=== PATIENT | female | born 1960 | race Caucasian/White ===

== ENCOUNTER 2017-07-15 02:44 | Observation (INO) | payer BC ==
--- NOTE | 2017-07-15 03:08 | ED PDOC ---
Arrival/HPI - General Chief Complaint: Chest Pain Time Seen by Provider: 07/15/17 02:44 Historian: Patient - History of Present Illness Narrative History of Present Illness (Text): 07/15/17 03:05 Rakel Schwartz is a 56 year old female, whose past medical history includes diabetes, hypertension, and aortic stenosis, who presents to the Emergency department complaining of chest pain. Patient states she has experiencing intermittent right-sided chest pressure for the past 2 hours but notes it has improved since arriving to the emergency room. Patient denies any fever, chills , shortness of breath, nausea, vomiting, diarrhea, urinary symptoms, back pain, neck pain, headache, dizziness, or any other complaints. PMD: Dr. Garcia Time/Duration: Other (couple of hours) Symptom Onset: Gradual Symptom Course: Unchanged Quality: Pressure Activities at Onset: Light Context: Home Past Medical History - Provider Review Nursing Documentation Reviewed: Yes - Infectious Disease Hx of Infectious Diseases: None - Reproductive Menopause: Yes - Cardiac Hx Cardiac Arrhythmia: Yes - Pulmonary Hx Respiratory Disorders: No - Neurological Hx Neurological Disorder: No - HEENT Hx HEENT Disorder: No - Renal Hx Renal Disorder: No - Endocrine/Metabolic Hx Endocrine Disorders: No - Hematological/Oncological Hx Blood Disorders: No - Integumentary Hx Dermatological Disorder: No - Musculoskeletal/Rheumatological Hx Musculoskeletal Disorders: No - Gastrointestinal Hx Gastrointestinal Disorders: No - Genitourinary/Gynecological Hx Genitourinary Disorders: No - Psychiatric Hx Psychophysiologic Disorder: No Hx Substance Use: No - Surgical History Hx Appendectomy: Yes - Anesthesia Hx Anesthesia: No Family/Social History - Physician Review Nursing Documentation Reviewed: Yes Family/Social History: Diabetes Smoking Status: Never Smoked Hx Alcohol Use: No Hx Substance Use: No Allergies/Home Meds Allergies/Adverse Reactions: Allergies No Known Allergies Allergy (Verified 07/15/17 02:49) Home Medications: Home Meds Medication Instructions Recorded Confirmed No Known Home Med 07/15/17 07/15/17 Review of Systems - Physician Review All systems were reviewed & negative as marked: Yes - Review of Systems Constitutional: Normal. absent: Fevers Eyes: Normal ENT: Normal Respiratory: Normal. absent: SOB, Cough Cardiovascular: Chest Pain Gastrointestinal: Normal. absent: Abdominal Pain, Diarrhea, Nausea, Vomiting Genitourinary Female: Normal. absent: Dysuria, Frequency, Hematuria, Urine Output Changes Musculoskeletal: Normal. absent: Back Pain, Neck Pain Skin: Normal. absent: Rash Neurological: Normal. absent: Headache, Dizziness Endocrine: Normal Hemo/Lymphatic: Normal Psychiatric: Normal Physical Exam Vital Signs Reviewed: Yes Vital Signs Temp Pulse Resp BP Pulse Ox 07/15/17 04:51 63 17 165/94 H 97 07/15/17 02:50 98.3 F 07/15/17 02:44 70 20 165/83 H 97 Temperature: Afebrile Blood Pressure: Hypertensive Pulse: Regular Respiratory Rate: Normal Appearance: Positive for: Well-Appearing, Non-Toxic, Comfortable Pain Distress: None Mental Status: Positive for: Alert and Oriented X 3 - Systems Exam Head: Present: Atraumatic, Normocephalic Pupils: Present: PERRL Extroacular Muscles: Present: EOMI Conjunctiva: Present: Normal Mouth: Present: Moist Mucous Membranes Neck: Present: Normal Range of Motion Respiratory/Chest: Present: Clear to Auscultation, Good Air Exchange. No: Respiratory Distress, Accessory Muscle Use Cardiovascular: Present: Regular Rate and Rhythm, Normal S1, S2. No: Murmurs Abdomen: Present: Normal Bowel Sounds. No: Tenderness, Distention, Peritoneal Signs Back: Present: Normal Inspection Upper Extremity: Present: Normal Inspection. No: Cyanosis, Edema Lower Extremity: Present: Normal Inspection. No: Edema Neurological: Present: GCS=15, CN II-XII Intact, Speech Normal Skin: Present: Warm, Dry, Normal Color. No: Rashes Psychiatric: Present: Alert, Oriented x 3, Normal Insight, Normal Concentration Medical Decision Making ED Course and Treatment: 07/15/17 03:05 Impression: 56 year old female complaining of intermittent right-sided chest pressure tonight. Plan: -- EKG -- Chest X-ray -- Labs, cardiac enzymes -- Aspirin -- Reassess and disposition Prior Visits: Notes and results from previous visits were reviewed. On 12/22/2015, pt was seen in the Emergency department for chest pain and anxiety. Pt was d/c home. Progress Notes: Reviewed EKG, NSR at [address]-segment elevations or depressions, no T-wave inversions, normal intervals. 07/15/17 03:30 Reviewed radiology, Chest X-ray shows no acute processes. 07/15/17 04:[address] Garcia, who is aware and agrees with plan. Accepts pt in to his service. Pt will go to Telemetry observation for chest pain. Requests Dr. Adkins on consult. - Lab Interpretations Lab Results: 07/15/17 03:00 07/15/17 03:00 Lab Results 07/15/17 03:00: WBC 6.8 D, RBC 4.95, Hgb 13.8, Hct 40.1, MCV 81.0, MCH 27.9, MCHC 34.4, RDW 13.6, Plt Count 268, MPV 12.1 H 07/15/17 03:00: Sodium 142, Potassium 4.0, Chloride 104, Carbon Dioxide 27, Anion Gap 15, BUN 16, Creatinine 0.8, Est GFR ( Amer) > 60, Est GFR (Non- Af Amer) > 60, Random Glucose 134 H, Calcium 9.0, Total Bilirubin 0.6, AST 31, ALT 41, Alkaline Phosphatase 96, Lactate Dehydrogenase 554, Total Creatine Kinase 94, Troponin I < 0.01, Total Protein 8.3, Albumin 4.5, Globulin 3.9, Albumin/Globulin Ratio 1.2 07/15/17 03:00: PT 12.0, INR 1.10 H, APTT 30.6 I have reviewed the lab results: Yes - RAD Interpretation Radiology Orders: 07/15/17 02:59 CHEST PORTABLE [RAD] Stat Chief Embalmer: ED Physician - EKG Interpretation Interpreted by ED Physician: Yes Type: 12 lead EKG - Medication Orders Current Medication Orders: Discontinued Medications Aspirin (Aspirin) 325 mg PO ONCE STA Stop: 07/15/17 03:01 Last Admin: 07/15/17 03:24 Dose: 325 mg - Scribe Statement The provider has reviewed the documentation as recorded by the Candace Weinberg Provider Scribe Attestation: All medical record entries made by the Candace were at my direction and personally dictated by me. I have reviewed the chart and agree that the record accurately reflects my personal performance of the history, physical exam, medical decision making, and the department course for this patient. I have also personally directed, reviewed, and agree with the discharge instructions and disposition. Disposition/Present on Arrival - Present on Arrival Any Indicators Present on Arrival: No History of DVT/PE: No History of Uncontrolled Diabetes: No Urinary Catheter: No History of Decub. Ulcer: No History Surgical Site Infection Following: None - Disposition Have Diagnosis and Disposition been Completed?: Yes Diagnosis: Chest pain Disposition: HOSPITALIZED Disposition Time: 05:00 Patient Problems: Current Active Problems Problem Status Onset Chest pain Acute Condition: GOOD
[2017-07-15 03:23] LABS: HEMATOCRIT 40.1 % (36.0-48.0); MEAN CORPUSCULAR HEMOGLOBIN 27.9 pg (25.0-35.0); MEAN CORPUSCULAR HGB CONC 34.4 g/dl (31.0-37.0); MEAN PLATELET VOLUME 12.1 fl (7.0-11.0); RED CELL DISTRIBUTION WIDTH 13.6 % (11.5-14.5); WHITE BLOOD COUNT 6.8 10^3/ul (4.5-11.0)
[2017-07-15 03:27] LABS: INR 1.1 (0.93-1.08)
[2017-07-15 03:28] LABS: PARTIAL THROMBOPLASTIN TIME 30.6 Seconds (25.1-36.5)
[2017-07-15 03:30] LABS: ALB/GLOB RATIO 1.2 (1.1-1.8); BILIRUBIN,TOTAL 0.6 mg/dL (0.2-1.3); GFR AFRICAN-AMERICAN > 60; GLUCOSE,RANDOM 134 mg/dL (70-110); TOTAL PROTEIN 8.3 g/dL (5.8-8.3)
[2017-07-15 03:41] LABS: TROPONIN I < 0.01 ng/mL
[2017-07-15 04:17] LABS: ALKALINE PHOSPHATASE 96 U/L (38-126); ALT/SGPT 41 U/L (7-56); AST/SGOT 31 U/L (14-36); BLOOD UREA NITROGEN 16 mg/dL (7-21); CARBON DIOXIDE 27 mmol/L (21-33); CHLORIDE 104 mmol/L (98-107); SODIUM 142 mmol/L (132-148)
[2017-07-15 08:19] VITALS: RESP 18
--- NOTE | 2017-07-15 08:43 | RAD ---
HISTORY: chest pain COMPARISON: Portable chest 12/14/2015. FINDINGS: LUNGS: No active pulmonary disease. PLEURA: No significant pleural effusion identified, no pneumothorax apparent. CARDIOVASCULAR: Normal. OSSEOUS STRUCTURES: Scoliotic thoracic spinal deformity again evident. VISUALIZED UPPER ABDOMEN: Normal. OTHER FINDINGS: None. IMPRESSION: No interval acute cardiopulmonary disease appreciated.
--- NOTE | 2017-07-15 13:05 | HP ---
HISTORY OF PRESENT ILLNESS: A 56-year-old white female with a history of heart murmur in the past. No other past medical history. She has been taking no medication. She has no allergies. The patient complains of some left-sided burning chest pain occurring without nausea, vomiting, without diaphoresis, without shortness of breath, without radiation of pain. The patient came to the emergency room last night, was started on aspirin, was seen in consultation in the ER by Dr. Adkins, who has seen the patient in the past. The patient has a history of questionable murmur in the past. PHYSICAL EXAMINATION: GENERAL: The patient is awake, alert, and oriented x3. VITAL SIGNS: Stable. CHEST: Clear to auscultation and percussion. HEART: Systolic ejection murmur at the left sternal border without radiation. ABDOMEN: There is also loud abdominal bruit on auscultation of the abdomen. Abdomen is obese, but benign otherwise. No hepatosplenomegaly. Bowel sounds are normoactive. EXTREMITIES: Without cyanosis, clubbing, or edema. CHEST: Clear to auscultation and percussion. NEUROLOGIC: Sensation is grossly intact. IMPRESSION AND PLAN: Chest pain, systolic ejection murmur, abdominal aortic bruits in a 56-year-old white female presenting with left chest discomfort, rule out coronary artery disease, rule out valvular heart disease, rule out aortic abdominal aneurysm. William Garcia MD
[2017-07-15 15:06] VITALS: BMI 25.7
[2017-07-15] MEDS ORDERED: Pneumococcal 23-Valent Vaccine IM ONE (15:06)
[2017-07-15] MEDS ORDERED: Influenza Vaccine 60 mcg/0.5 mL SYR (4YR UP) IM ONE (15:06)
--- NOTE | 2017-07-15 17:41 | CON ---
DATE: 07/15/2017 INDICATIONS: Chest pain. HISTORY OF PRESENT ILLNESS: This is a 56-year-old woman, who came to the emergency room because of chest discomfort, which was in mid chest and right sided, not associated with diaphoresis or shortness of breath; it lasted several hours. She came to the emergency room and has resolved by this morning. She said she had pain previously and was evaluated in the emergency room about a year or so ago. She has a heart murmur consistent with aortic stenosis. She is not sure of the diagnosis however. There was no shortness of breath, orthopnea, PND, syncope, presyncope, lightheadedness, dizziness, vertigo, palpitations, edema, claudication, fever, chills, cough, sputum production, hemoptysis, abdominal pain, nausea, vomiting, diarrhea, constipation, or melena. PAST MEDICAL HISTORY: Notable for aortic stenosis, hypertension, diabetes, and diminished auditory acuity. MEDICATIONS: She is not any medications at this time however. ALLERGIES: THERE ARE NO MEDICATION ALLERGIES. SOCIAL HISTORY: She lives at home with her . She does not smoke. She does not drink. She is ambulatory. FAMILY HISTORY: Noncontributory. REVIEW OF SYSTEMS: Ten-point review of systems is otherwise unremarkable except as noted above. PHYSICAL EXAMINATION: GENERAL: She is a well-developed woman with diminished hearing, lying on stretcher in the emergency room in the presence of her son and . VITAL SIGNS: Notable for sinus rhythm at 68 beats per minute. She is afebrile. Blood pressure 151/86, respirations 16, and O2 sat 98% on room air. HEENT AND NECK: Reveals no neck vein distention, thyromegaly or carotid bruits. Mucous membranes are moist. Conjunctivae pink. Neck is supple. LUNGS: [place] clear. HEART: Reveals normal first and second heart sounds. There is a 2/6 systolic ejection murmur heard in the aortic space along left sternal border. PMI was not displaced. ABDOMEN: Soft. Bowel sounds are present. No mass, organomegaly, tenderness, rebound or guarding. No CVA tenderness. No palpable abdominal aortic aneurysm. EXTREMITIES: Reveals no cyanosis, clubbing or edema. NEUROLOGIC: Awake, alert, and oriented, diminished hearing. PSYCHIATRIC: Normal as to mood and affect. SKIN: Warm and dry. No rash or cellulitis. LABORATORY AND IMAGING: A portable chest x-ray revealed no interval acute cardiopulmonary disease appreciated. EKG demonstrates regular sinus rhythm. No change from previous EKG; no acute changes noted. CBC is unremarkable. PT, INR, PTT are unremarkable. Electrolytes, BUN, and creatinine are unremarkable. Blood sugars 134. LFTs unremarkable. CK 94. Troponin less than 0.01. IMPRESSION: Rakel Schwartz is a 56-year-old woman with history of aortic stenosis, hypertension, diabetes, on no meds, who presents with chest pain which is somewhat atypical, not associated with EKG changes with a negative first troponin. At this time, she will be admitted to telemetry. We will get serial EKGs and enzymes. I will order an echocardiogram. She has been given aspirin. I will give her amlodipine 2.5 mg for elevated blood pressure. I will clarify her outpatient medications. We will monitor her blood sugars while in the hospital. She should be considered for nuclear stress testing unless the aortic stenosis proves to be severe on echocardiography, in which case cardiac catheterization would be indicated. I will follow along with you. I will make additional recommendations based on his clinical course. Carlos Adkins MD MTDSaleem
--- NOTE | 2017-07-15 18:28 | US ---
PROCEDURE: 1. Duplex ultrasound of the abdominal aorta. HISTORY: Abdominal aortic aneurysm. PHYSICIAN(S): Bhavesh More MD. FINDINGS: The exam is very limited by bowel gas The visualized abdominal aorta is normal in caliber with some atherosclerotic change present. The abdominal aorta is patent. The abdominal aorta measures 1.7 cm in greatest transverse dimension. No sonographic evidence of abdominal aortic aneurysm is appreciated. The visualized proximal common iliac arteries are normal in caliber. IMPRESSION: 1. No sonographic evidence of abdominal aortic aneurysm. 2. Limited study.
--- NOTE | 2017-07-16 07:39 | CP.PCM.PN ---
Subjective - Date & Time of Evaluation Date of Evaluation: 07/16/17 Time of Evaluation: 07:00 - Subjective Subjective: Stable on 3R. She feels well. No CP or SOB. V/S noted. RSR PE: Lungs: clear Cor.: S1S2 [place] Abd.: soft Ext.: no edema Neuro.: alert I/O= 840/500 Trops neg x 2 ECG 07/15/17: S. Josh. No acute changes Echo not done yet: will be done this AM Objective - Vital Signs/Intake and Output Vital Signs (last 24 hours): Temp Pulse Resp BP Pulse Ox 99 F 51 L 18 140/83 98 07/15/17 16:00 07/16/17 04:55 07/15/17 16:00 07/15/17 16:00 07/15/17 16:00 Intake and Output: 07/16/17 07/16/17 06:59 18:59 Intake Total 840 Balance 840 - Medications Medications: Current Medications Amlodipine Besylate (Norvasc) 2.5 mg PO DAILY [facility] Last Admin: 07/15/17 10:20 Dose: 2.5 mg Aspirin (Aspirin Chewable) 81 mg PO DAILY [facility] - Labs Labs: PT 12.0 SECONDS (9.4-12.5) 07/15/17 03:00 INR 1.10 (0.93-1.08) H 07/15/17 03:00 APTT 30.6 Seconds (25.1-36.5) 07/15/17 03:00 Assessment and Plan - Assessment and Plan (Free Text) Assessment: Chest Pain HBP Aortic Stenosis Abdominal bruit. No AAA on abd. u/s Diabetes Diminished hearing. Plan: Check echo this AM OOB/Ambulate Out-pt nuclear stress test: to be arranged.
[2017-07-16 08:37] VITALS: BP 136/83; PULSE 53; TEMP 98.4; O2SAT 95
[2017-07-16 09:16] LABS: TROPONIN I < 0.01 ng/mL
--- NOTE | 2017-07-16 09:55 | CARD ---
APPROVED REPORT EKG Measurement Heart [id number] <Conclusion> Sinus bradycardia Otherwise normal ECG No change
--- NOTE | 2017-07-16 10:43 | CARD ---
APPROVED REPORT EXAM: Two-dimensional and M-mode echocardiogram with Doppler and color Doppler. Other Information Quality : AverageRhythm : INDICATION Aortic Valve Disease Chest Pain 2D DIMENSIONS Left Atrium (2D)3.1 (1.6-4.0cm)IVSd1.2 (0.7-1.1cm) LVDd4.2 (3.9-5.9cm)LVOT Diameter1.9 (1.8-2.4cm) PWd1.1 (0.7-1.1cm)LVDs3.0 (2.5-4.0cm) FS (%) 28.4 %LVEF (%)55.0 (>50%) M-Mode DIMENSIONS Aortic Root2.40 (2.2-3.7cm)Aortic Cusp Exc.0.70 (1.5-2.0cm) Aortic Valve AoV Peak Vhsiratj424.0cm/sAoV VTI85.4cmAO Peak GR.59mmHg LVOT Peak Hxuoacqj399.0cm/sLVOT VTI28.90cmAO Mean GR.29mmHg [place] (VMAX)0.63qg5RJQ (VTI)0.96cm2 Mitral Valve MV E [place]g23.4cm/sMV A Gnxvspdf971.0cm/sE/A ratio0.9 TDI E/Lateral E'0.0E/Medial E'0.0 Tricuspid Valve TR Peak Qmdzykrk047hw/sRAP NETDMBWI03fmHuXI Peak Gr.23mmHg VIFL51vsBc LEFT VENTRICLE The left ventricle is normal size. There is borderline concentric left ventricular hypertrophy. The left ventricular function is normal. The left ventricular ejection fraction is within the normal range. There is normal LV segmental wall motion. RIGHT VENTRICLE The right ventricle is normal size. ATRIA The left atrium size is normal. The right atrium size is normal. The interatrial septum is intact with no evidence for an atrial septal defect. AORTIC VALVE The aortic valve is moderately to severely calcified. There is mild aortic regurgitation. There is severe valvular aortic stenosis. MITRAL VALVE The mitral valve is normal in structure. TRICUSPID VALVE The tricuspid valve is normal in structure. There is mild tricuspid regurgitation. PULMONIC VALVE The pulmonic valve is not well visualized. GREAT VESSELS The aortic root is normal in size. PERICARDIAL EFFUSION There is no pericardial effusion. <Conclusion> The left ventricle is normal size. There is borderline concentric left ventricular hypertrophy. The left ventricular function is normal. The aortic valve is moderately to severely calcified. There is severe valvular aortic stenosis. There is mild aortic regurgitation. There is mild tricuspid regurgitation.
--- NOTE | 2017-07-16 11:35 | CARD ---
APPROVED REPORT EKG Measurement Heart [id number] MD [id number] <Conclusion> Normal sinus rhythm Normal ECG No change
--- NOTE | 2017-07-17 01:02 | DS ---
HISTORY AND HOSPITAL COURSE: The patient was admitted with chest pain. Seen in consultation by Dr. Adkins. The patient had an echocardiogram, had initial troponin and EKGs suggestive no changes. They were stabilized. Systolic ejection murmur, found to have aortic stenosis, moderate to severe degree. DISCHARGE INSTRUCTIONS: The patient was planned for outpatient stress test by Dr. Adkins. The patient will be discharged home in improved condition. DISCHARGE DIAGNOSES: Nonspecific chest pain and severe aortic stenosis. William Garcia MD
== END 2017-07-16 14:01 | disposition home or self-care (01) ==
LOC: ED 02:44 → ERH 05:00 → 3RNO 15:53
PROVIDERS: ADMIT Internal Medicine; ATTEND Internal Medicine
DX: R07.89 Other chest pain (principal); I35.0 Nonrheumatic aortic (valve) stenosis; I10 Essential (primary) hypertension; E11.9 Type 2 diabetes mellitus without complications
CPT/HCPCS: 36415; 71010; 80053; 82550; 83615; 84484; 85027; 85610; 85730; 93005; 93306; 93978; 99285; G0378

== ENCOUNTER 2018-04-07 13:36 | Observation (INO) | payer BC ==
[2018-04-07 13:36] VITALS: BMI 25.7
--- NOTE | 2018-04-07 14:20 | ED PDOC ---
Arrival/HPI - General Chief Complaint: GI Problem Time Seen by Provider: 04/07/18 14:05 Historian: Patient - History of Present Illness Narrative History of Present Illness (Text): 04/07/18 14:20 A 57 year old female with no significant past medical history presents to the emergency department complaining of vomiting since this morning. Patient reports she was feeling dizzy and lightneaded this morning with assoicated shaking and heartburn, started feeling epigastric pain and vomitted 15 times. Patient denies any fever, chills, chest pain, shortness of breath, diarrhea, urinary symptoms, back pain, neck pain, headache, or any other complaints. PMD: Dr. Garcia Time/Duration: 4-6 hours (this morning) Symptom Course: Unchanged Activities at Onset: Light Context: Home Past Medical History - Provider Review Nursing Documentation Reviewed: Yes - Infectious Disease Hx of Infectious Diseases: None - Cardiac Hx Cardiac Disorders: (aortic stenosis) Hx Cardiac Arrhythmia: Yes Hx Heart Murmur: Yes Hx Hypertension: Yes - Pulmonary Hx Respiratory Disorders: No - Neurological Hx Neurological Disorder: No - HEENT Hx HEENT Disorder: Yes ([place] ear, reading glasses) - Renal Hx Renal Disorder: No - Endocrine/Metabolic Hx Diabetes Mellitus Type 2: Yes (pt controls by diet) - Hematological/Oncological Hx Blood Disorders: No - Integumentary Hx Dermatological Disorder: No - Musculoskeletal/Rheumatological Hx Falls: No - Gastrointestinal Hx Gastrointestinal Disorders: Yes (missing teeth) - Genitourinary/Gynecological Hx Genitourinary Disorders: No - Psychiatric Hx Psychophysiologic Disorder: No Hx Substance Use: No - Surgical History Hx Appendectomy: Yes (age 6) - Anesthesia Hx Anesthesia: No Hx Anesthesia Reactions: No Hx Malignant Hyperthermia: No Family/Social History - Physician Review Nursing Documentation Reviewed: Yes Family/Social History: Unknown Family HX Smoking Status: Never Smoked Hx Alcohol Use: No Hx Substance Use: No Allergies/Home Meds Allergies/Adverse Reactions: Allergies No Known Allergies Allergy (Verified 07/15/17 02:49) Home Medications: Home Meds Medication Instructions Recorded Confirmed No Known Home Med 07/15/17 07/15/17 Review of Systems - Physician Review All systems were reviewed & negative as marked: Yes - Review of Systems Constitutional: absent: Fevers, Night Sweats Respiratory: absent: SOB Cardiovascular: absent: Chest Pain Gastrointestinal: Nausea, Vomiting. absent: Diarrhea Musculoskeletal: absent: Back Pain, Neck Pain Neurological: Dizziness. absent: Headache Physical Exam Vital Signs Reviewed: Yes Vital Signs Temp Pulse Resp BP Pulse Ox 04/07/18 13:57 98.4 F 88 18 176/102 H 98 Temperature: Afebrile Blood Pressure: Hypertensive Pulse: Regular Respiratory Rate: Normal Appearance: Positive for: Well-Appearing, Non-Toxic, Comfortable Pain Distress: None Mental Status: Positive for: Alert and Oriented X 3 - Systems Exam Head: Present: Atraumatic, Normocephalic Pupils: Present: PERRL Extroacular Muscles: Present: EOMI Conjunctiva: Present: Normal Mouth: Present: Moist Mucous Membranes Neck: Present: Normal Range of Motion Respiratory/Chest: Present: Clear to Auscultation, Good Air Exchange. No: Respiratory Distress, Accessory Muscle Use Cardiovascular: Present: Murmurs (baseline, family is aware ). No: Regular Rate and Rhythm, Normal S1, S2, Irregular Rhythm, Peripheal Pulses Present, Bradycardic, Rub, Gallop, Muffled Abdomen: Present: Tenderness (right upper quadrant tenderness ), Normal Bowel Sounds. No: Distention, Peritoneal Signs, Rebound, Guarding, McBurney's Point Tender, Rovsing's Sign Present, Hernias, Feeding Tubes, Mass/Organomegaly, Scars , Other Back: Present: Normal Inspection Upper Extremity: Present: Normal Inspection. No: Cyanosis, Edema Lower Extremity: Present: Normal Inspection. No: Edema Neurological: Present: GCS=15, CN II-XII Intact, Speech Normal Skin: Present: Warm, Dry, Normal Color. No: Rashes Psychiatric: Present: Alert, Oriented x 3, Normal Insight, Normal Concentration Medical Decision Making ED Course and Treatment: 04/07/18 14:25 Impression: 57 year old female presenting to the Emergency Department complaining of vomiting. Plan: -- Labs -- EKG -- CBC -- Maalox -- Pepcid -- Zofran -- Ultrasound of Abdomen -- Reassess and disposition Prior Visits: Notes and results from previous visits were reviewed. EKG shows NSR at 89bpm with no acute ST changes Progress Notes: 04/07/18 14:[address] Garcia, who is aware the patient is in the emergency room. 04/07/18 15:[address] Garcia who agreed to consult Dr. Baird for surgery 04/07/18 15:54 TECHNIQUE: Sonographic evaluation of the abdomen. FINDINGS: LIVER: Measures 13.7 cm. Normal echogenicity of the liver parenchyma. No mass. No intrahepatic bile duct dilatation. GALLBLADDER: Multiple stones COMMON BILE DUCT: Measures 10.7 mm. No stones. PANCREAS: Unremarkable as visualized. No mass. No ductal dilatation. RIGHT KIDNEY: Measures 10.6 x 5.5 x 5.8cm. Normal echogenicity. No calculus, mass, or hydronephrosis. 7 mm nonobstructing stone LEFT KIDNEY: Measures 10.4 x 6.4 x 6.5cm. Normal echogenicity. No calculus, mass, or hydronephrosis. SPLEEN: Normal in size and contour. No mass. 8.9 x 3.9 x 4.9 AORTA: No aneurysmal dilatation. IVC: Unremarkable. OTHER FINDINGS: None. IMPRESSION: Multiple gallstones and distention of the gallbladder. Dilated common bile duct 04/07/18 16:12 Gen sx and GI consulted 04/07/18 16:15 GI, Dr. Schulte, consulted. - Lab Interpretations Lab Results: 04/07/18 15:00 04/07/18 15:00 Lab Results 04/07/18 15:00: Sodium 142, Potassium 4.1, Chloride 100, Carbon Dioxide 28, Anion Gap 18, BUN 15, Creatinine 0.5 L, Est GFR ( Amer) > 60, Est GFR ( Non-Af Amer) > 60, Random Glucose 213 H, Calcium 9.2, Phosphorus 4.1, Magnesium 1.5 L, Total Bilirubin 0.5, AST 34, ALT 56, Alkaline Phosphatase 118, Troponin I < 0.01, Total Protein 8.3, Albumin 4.7, Globulin 3.6, Albumin/Globulin Ratio 1.3, Lipase 86 04/07/18 15:00: WBC 12.9 H D, RBC 4.81, Hgb 13.2, Hct 38.2, MCV 79.4 L, MCH 27.4 , MCHC 34.6, RDW 13.6, Plt Count 224, MPV 11.5 H, Gran % 91.6 H, Lymph % (Auto) 5.0 L, [place] % (Auto) 3.2, Eos % (Auto) 0.0 L, Baso % (Auto) 0.2, Gran # 11.85 H , Lymph # (Auto) 0.7 L, [place] # (Auto) 0.4, Eos # (Auto) 0.0, Baso # (Auto) 0.02 , Neutrophils % (Manual) Pending, Lymphocytes % (Manual) Pending, Monocytes % ( Manual) Pending 04/07/18 13:45: POC Glucose (mg/dL) 191 H - RAD Interpretation Radiology Orders: 04/07/18 14:20 ABDOMEN COMPLETE [US] Stat - Medication Orders Current Medication Orders: Sodium Chloride (Sodium Chloride 0.9%) 1,000 mls @ 100 mls/hr IV .Q10H AIYANA Discontinued Medications Al Hydrox/Mg Hydrox/Simethicone (Maalox Plus 30 Ml) 30 ml PO STAT STA Stop: 04/07/18 14:22 Last Admin: 04/07/18 15:07 Dose: 30 ml Famotidine (Pepcid) 20 mg IVP STAT STA Stop: 04/07/18 14:22 Last Admin: 04/07/18 15:07 Dose: 20 mg IVP Administration Document 04/07/18 15:07 JERAMIEA (Rec: 04/07/18 15:07 JOSELYN [id number]) Charges for Administration # of IVP Administrations 1 Ketorolac Tromethamine (Toradol) 30 mg IVP STAT STA Stop: 04/07/18 16:07 Ondansetron HCl (Zofran Inj) 4 mg IVP STAT STA Stop: 04/07/18 14:22 Last Admin: 04/07/18 15:07 Dose: 4 mg IVP Administration Document 04/07/18 15:07 JOSELYN (Rec: 04/07/18 15:07 JOSELYN [id number]) Charges for Administration # of IVP Administrations 1 - Scribe Statement The provider has reviewed the documentation as recorded by the Josepibaldo Salazar All medical record entries made by the Scribe were at my direction and personally dictated by me. I have reviewed the chart and agree that the record accurately reflects my personal performance of the history, physical exam, medical decision making, and the department course for this patient. I have also personally directed, reviewed, and agree with the discharge instructions and disposition. Disposition/Present on Arrival - Present on Arrival Any Indicators Present on Arrival: No History of DVT/PE: No History of Uncontrolled Diabetes: Yes Urinary Catheter: No History of Decub. Ulcer: No History Surgical Site Infection Following: None - Disposition Have Diagnosis and Disposition been Completed?: Yes Diagnosis: Cholelithiasis Disposition: HOSPITALIZED Disposition Time: 16:13 Patient Plan: Observation Patient Problems: Current Active Problems Problem Status Onset Cholelithiasis Acute Condition: FAIR Referrals: William Garcia MD [Primary Care Provider] - Follow up with primary Forms: [employer] (Greenlandic)
[2018-04-07] MEDS ORDERED: Alum-Mag Hydrox-Simethicone Susp (30 mL) PO STA (14:21)
--- NOTE | 2018-04-07 15:09 | US ---
Date of service: 04/07/2018 HISTORY: RUQ pain COMPARISON: None. TECHNIQUE: Sonographic evaluation of the abdomen. FINDINGS: LIVER: Measures 13.7 cm. Normal echogenicity of the liver parenchyma. No mass. No intrahepatic bile duct dilatation. GALLBLADDER: Multiple stones COMMON BILE DUCT: Measures 10.7 mm. No stones. No dilatation. PANCREAS: Unremarkable as visualized. No mass. No ductal dilatation. RIGHT KIDNEY: Measures 10.6 x 5.5 x 5.8cm. Normal echogenicity. No calculus, mass, or hydronephrosis. 7 mm nonobstructing stone LEFT KIDNEY: Measures 10.4 x 6.4 x 6.5cm. Normal echogenicity. No calculus, mass, or hydronephrosis. SPLEEN: Normal in size and contour. No mass. 8.9 x 3.9 x 4.9 AORTA: No aneurysmal dilatation. IVC: Unremarkable. OTHER FINDINGS: None. IMPRESSION: Multiple gallstones and distention of the gallbladder. Dilated common bile duct
[2018-04-07 15:45] LABS: BASO # 0.02 K/mm3 (0.0-2.0); BASO % 0.2 % (0.0-3.0); GRAN # 11.85 (1.4-6.5); GRAN % 91.6 % (50.0-68.0); HEMOGLOBIN 13.2 g/dL (12.0-16.0); LYMPH # 0.7 (1.2-3.4); MEAN CELL VOLUME 79.4 fl (80.0-105.0); MEAN CORPUSCULAR HEMOGLOBIN 27.4 pg (25.0-35.0); MEAN CORPUSCULAR HGB CONC 34.6 g/dl (31.0-37.0); MEAN PLATELET VOLUME 11.5 fl (7.0-11.0); MONO # 0.4 (0.1-0.6); MONO % 3.2 % (1.0-6.0); PLATELET COUNT 224 10^3/uL (120.0-450.0); RBC 4.81 10^6/uL (3.5-6.1); RED CELL DISTRIBUTION WIDTH 13.6 % (11.5-14.5); WHITE BLOOD COUNT 12.9 10^3/ul (4.5-11.0)
[2018-04-07 15:47] LABS: ALB/GLOB RATIO 1.3 (1.1-1.8); ALBUMIN 4.7 g/dL (3.0-4.8); ALT/SGPT 56 U/L (7-56); AST/SGOT 34 U/L (14-36); BLOOD UREA NITROGEN 15 mg/dL (7-21); CALCIUM 9.2 mg/dL (8.4-10.5); GFR AFRICAN-AMERICAN > 60; GFR NON-AFRICAN AMERICAN > 60; LIPASE 86 U/L (23-300)
[2018-04-07 15:56] LABS: TROPONIN I < 0.01 ng/mL
[2018-04-07] MEDS ORDERED: Sodium Chloride 0.9% 1,000 ML IV SCH (16:15)
[2018-04-07 16:31] LABS: ANISOCYTOSIS SLIGHT; LYMPHOCYTE 3 % (22.0-35.0); MONOCYTE 1 % (1.0-6.0); NEUTROPHIL 96 % (50.0-70.0); PLATELET ESTIMATE NORMAL (NORMAL)
[2018-04-07] MEDS ORDERED: Morphine 2 mg/ml ISec IVP PRN (17:04)
--- NOTE | 2018-04-07 17:12 | CP.PCM.CON ---
History of Present Illness - History of Present Illness History of Present Illness: General Surgery Consult Note for Dr. Baird Reason for Consult: gallstones, abdominal pain 57 yo F with PMHx of HTN, DM, and aortic stenosis presented to the ED for intractable vomiting and epigastric & RUQ abdominal pain. Per patient, her symptoms began last night after eating a spinach pie from a restaurant. She reports feeling nauseous and vomiting several times last night, which continued into today: ~15 episodes non-bilious, nonbloody vomiting total. She also complains of associated localized RUQ abdominal pain. Denies taking anything for the pain, states that lying down makes her feel better. Patient states she has had bouts of abdominal pain and vomiting in the past, but none as severe or frequent as this current episode. Denies any hematemesis or hemoptysis. Patient denies any fevers or chills, chest pain, SOB, palpitations, diarrhea or constipation, urinary symptoms, or any other complaints. PMHx: DM (not med controlled), HTN, Aortic stenosis PSHx: appendectomy Allergies: NKDA Medications: no home medications Social Hx: denies alcohol, tobacco, or drug use. Lives with , who is present at bedside. PMD: Dr. Garcia Review of Systems - Review of Systems All systems: reviewed and no additional remarkable complaints except Review of Systems: as per HPI above Past Patient History - Infectious Disease Hx of Infectious Diseases: None - Past Social History Smoking Status: Never Smoked - CARDIAC Hx Cardiac Disorders: (aortic stenosis) Hx Cardia Arrhythmia: Yes Hx Heart Murmur: Yes Hx Hypertension: Yes - PULMONARY Hx Respiratory Disorders: No - NEUROLOGICAL Hx Neurological Disorder: No - HEENT Hx HEENT Problems: Yes ([place] r ear, reading glasses) - RENAL Hx Chronic Kidney Disease: No - ENDOCRINE/METABOLIC Hx Diabetes Mellitus Type 2: Yes (pt controls by diet) - HEMATOLOGICAL/ONCOLOGICAL Hx Blood Disorders: No - INTEGUMENTARY Hx Dermatological Problems: No - MUSCULOSKELETAL/RHEUMATOLOGICAL Hx Falls: No - GASTROINTESTINAL Hx Gastrointestinal Disorders: Yes (missing teeth) - GENITOURINARY/GYNECOLOGICAL Hx Genitourinary Disorders: No - PSYCHIATRIC Hx Psychophysiologic Disorder: No Hx Substance Use: No - SURGICAL HISTORY Hx Appendectomy: Yes (age 6) - ANESTHESIA Hx Anesthesia: No Hx Anesthesia Reactions: No Hx Malignant Hyperthermia: No Meds Allergies/Adverse Reactions: Allergies Allergy/AdvReac Type Severity Reaction Status Date / Time No Known Allergies Allergy Verified 07/15/17 02:49 - Medications Medications: Current Medications Sodium Chloride (Sodium Chloride 0.9%) 1,000 mls @ 100 mls/hr IV .Q10H AIYANA Last Admin: 04/07/18 16:27 Dose: 100 mls/hr Physical Exam - Constitutional Appears: Non-toxic, No Acute Distress - Head Exam Head Exam: ATRAUMATIC, NORMAL INSPECTION, NORMOCEPHALIC - Eye Exam Eye Exam: Normal appearance - ENT Exam ENT Exam: Mucous Membranes Moist, Normal Exam - Respiratory Exam Respiratory Exam: Clear to Auscultation Bilateral, NORMAL BREATHING PATTERN - Cardiovascular Exam Cardiovascular Exam: +S1, +S2, Systolic Murmur Additional comments: Aortic stenosis murmur present - GI/Abdominal Exam GI & Abdominal Exam: Soft, Tenderness (RUQ tenderness). absent: Distended, Firm , Guarding, Mass, Rebound, Rigid Additional comments: Negative Wu's sign - Back Exam Back exam: NORMAL INSPECTION - Neurological Exam Neurological exam: Alert, Oriented x3 - Psychiatric Exam Psychiatric exam: Normal Affect, Normal Mood - Skin Skin Exam: Dry, Intact, Normal Color, Warm Results - Vital Signs Recent Vital Signs: Last Vital Signs Temp 98.4 F 04/07/18 13:57 Pulse 88 04/07/18 13:57 Resp 18 04/07/18 13:57 BP 176/102 H 04/07/18 13:57 Pulse Ox 98 04/07/18 13:57 - Labs Result Diagrams: 04/07/18 15:00 04/07/18 15:00 Labs: Laboratory Results - last 24 hr 04/07/18 04/07/18 04/07/18 13:45 15:00 15:00 WBC 12.9 H D RBC 4.81 Hgb 13.2 Hct 38.2 MCV 79.4 L MCH 27.4 MCHC 34.6 RDW 13.6 Plt Count 224 MPV 11.5 H Gran % 91.6 H Lymph % (Auto) 5.0 L [place] % (Auto) 3.2 Eos % (Auto) 0.0 L Baso % (Auto) 0.2 Gran # 11.85 H Lymph # (Auto) 0.7 L [place] # (Auto) 0.4 Eos # (Auto) 0.0 Baso # (Auto) 0.02 Neutrophils % (Manual) 96 H Lymphocytes % (Manual) 3 L Monocytes % (Manual) 1 Platelet Evaluation Normal Anisocytosis (manual) Slight Sodium 142 Potassium 4.1 Chloride 100 Carbon Dioxide 28 Anion Gap 18 BUN 15 Creatinine 0.5 L Est GFR ( Amer) > 60 Est GFR (Non-Af Amer) > 60 POC Glucose (mg/dL) 191 H Random Glucose 213 H Calcium 9.2 Phosphorus 4.1 Magnesium 1.5 L Total Bilirubin 0.5 AST 34 ALT 56 Alkaline Phosphatase 118 Troponin I < 0.01 Total Protein 8.3 Albumin 4.7 Globulin 3.6 Albumin/Globulin Ratio 1.3 Lipase 86 Assessment & Plan - Assessment and Plan (Free Text) Assessment: 57 year old female presenting to the Emergency Department complaining of RUQ abdominal pain, intractable vomiting. Abdominal U/S positive for multiple gallstones and distended gallbladder, dilated CBD @ 10.7 mm. Plan: -mefoxin 1gm q8h -metronidazole 500 mg q8 -zofran 2 mg q4 prn -keep pt NPO, IVF -pain control, antiemetics -f/u cardiology consult -further recs, as per Dr. Oli Simpson, PGY-1
[2018-04-07 17:15] VITALS: BP 145/90; PULSE 80; TEMP 98; O2SAT 99
[2018-04-07] MEDS ORDERED: metroNIDAZOLE IV 500 mg/100 ml 500 MG/100 ML BAG IVPB SCH (17:15)
[2018-04-07] MEDS ORDERED: cefOXitin Sodium 1 GM in Sodium Chloride 0.9% 100 ML IV SCH (17:15)
--- NOTE | 2018-04-07 19:11 | CARD ---
APPROVED REPORT Date of service: 04/07/2018 EKG Measurement Heart [id number] <Conclusion> Normal sinus rhythm Possible Left atrial enlargement Borderline ECG
[2018-04-07 19:16] VITALS: RESP 16
[2018-04-07] MEDS ORDERED: Insulin Reg-LOW-Coverage SC SCH (22:00)
[2018-04-08] MEDS ORDERED: Carbidopa/Levodopa 25/100 CR PO SCH (10:00)
== END 2018-04-07 22:20 | disposition left against medical advice (07) ==
LOC: ED 13:36 → ERH 16:08 → 5RSO 17:24
PROVIDERS: ADMIT Internal Medicine; ATTEND Internal Medicine
DX: K80.20 Calculus of gallbladder without cholecystitis without obstruction (principal); K82.8 Other specified diseases of gallbladder; I35.0 Nonrheumatic aortic (valve) stenosis; I10 Essential (primary) hypertension; E11.9 Type 2 diabetes mellitus without complications; Z90.49 Acquired absence of other specified parts of digestive tract
CPT/HCPCS: 76700; 80053; 82948; 83690; 83735; 84100; 84484; 85025; 93005; 96374; 96375; 99285; G0378; J1885; J2405; J7030

== ENCOUNTER 2019-01-05 13:00 | Emergency (ER) | payer BC ==
[2019-01-05 13:05] VITALS: BMI 29.2
[2019-01-05 13:18] VITALS: RESP 18; TEMP 97.5
--- NOTE | 2019-01-05 13:41 | ED PDOC ---
Arrival/HPI - General Chief Complaint: Dizziness/Lightheaded Time Seen by Provider: 01/05/19 13:08 Historian: Patient - History of Present Illness Narrative History of Present Illness (Text): 01/05/19 13:29 58 year old F with pmh of vertigo presents via EMS complaining of nausea, vomiting and dizziness w/ left ear buzzing since this morning. Patient is difficulty hearing at baseline. Patient reports feeling dizzy (described as room spinning) and falling to the ground after getting out of bed this morning. Son reports dizziness worse this morning compared to baseline. She denies any head trauma, headache, neck pain, headache or LOC. Patient also vomited at home but associates that with dizziness. Active nausea but no active vomiting. Patient ambulates with cane at baseline. Patient denies any further complaints. PMD: Dr. 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) - Renal Hx Renal Disorder: No - Endocrine/Metabolic Hx Diabetes Mellitus Type 2: Yes (no meds for it, diet and exercise) - Hematological/Oncological Hx Blood Disorders: No - Integumentary Hx Dermatological Disorder: No - Musculoskeletal/Rheumatological Hx Back Pain: Yes (periodic) Hx Falls: No - Gastrointestinal Hx Gall Bladder Disease: Yes (gallstones) - Genitourinary/Gynecological Hx Genitourinary Disorders: No - Psychiatric Hx Psychophysiologic Disorder: No Hx Substance Use: No - Surgical History Hx Appendectomy: Yes Other/Comment: tubal ligation - Anesthesia Hx Anesthesia: No Hx Anesthesia Reactions: No Hx Malignant Hyperthermia: No Family/Social History - Physician Review Nursing Documentation Reviewed: Yes Family/Social History: Unknown Family HX Smoking Status: Never Smoked Hx Alcohol Use: No Hx Substance Use: No Allergies/Home Meds Allergies/Adverse Reactions: Allergies No Known Allergies Allergy (Verified 07/15/17 02:49) Review of Systems - Physician Review All systems were reviewed & negative as marked: Yes - Review of Systems Constitutional: absent: Fevers ENT: absent: Rhinorrhea, Epistaxis Respiratory: absent: SOB, Cough, Wheezing Cardiovascular: absent: Chest Pain, Palpitations Gastrointestinal: Nausea, Vomiting (not active). absent: Abdominal Pain, Diarrhea, Hematochezia, Hematemesis Genitourinary Female: absent: Dysuria, Hematuria Musculoskeletal: absent: Arthralgias, Back Pain, Neck Pain Skin: absent: Rash, Laceration Neurological: Dizziness (not active). absent: Headache, Facial Droop, Disequilibrium, Seizure Physical Exam Vital Signs Reviewed: Yes Vital Signs Temp Pulse Resp BP Pulse Ox 01/05/19 13:01 97.5 F L 65 18 164/91 H 95 Temperature: Afebrile Blood Pressure: Hypertensive Pulse: Regular Respiratory Rate: Normal Appearance: Positive for: Well-Appearing, Non-Toxic, Comfortable Pain Distress: Mild Mental Status: Positive for: Alert and Oriented X 3 Finger Stick Blood Glucose: 247 - Systems Exam Head: Present: Atraumatic, Normocephalic Pupils: Present: PERRL Extroacular Muscles: Present: EOMI. No: Gaze Palsy Conjunctiva: Present: Normal Ears: Present: Normal, NORMAL TM. No: Erythema Mouth: Present: Moist Mucous Membranes Pharnyx: Present: Normal. No: ERYTHEMA, EXUDATE Nose (External): No: Atraumatic Nose (Internal): Present: Normal Inspection, No Active Bleeding, Moist Neck: Present: Normal Range of Motion. No: MIDLINE TENDERNESS, Paraspinal Tenderness, JVD, Bruit Respiratory/Chest: Present: Clear to Auscultation, Good Air Exchange. No: Respiratory Distress, Accessory Muscle Use, Tender to Palpation Cardiovascular: Present: Regular Rate and Rhythm, Normal S1, S2. No: Murmurs Abdomen: Present: Normal Bowel Sounds. No: Tenderness, Distention, Peritoneal Signs Back: Present: Normal Inspection. No: Midline Tenderness Upper Extremity: Present: Normal Inspection, NORMAL PULSES, Neurovascularly I ntact. No: Cyanosis, Edema Lower Extremity: Present: Normal Inspection, Neurovascularly Intact. No: Edema Neurological: Present: GCS=15, CN II-XII Intact, Speech Normal, Motor Func Grossly Intact, Normal Sensory Function, Gait Normal (walks with assistance), Other (dizziness when turning head) Skin: Present: Warm, Dry, Normal Color. No: Rashes Psychiatric: Present: Alert, Oriented x 3, Normal Insight, Normal Concentration Medical Decision Making ED Course and Treatment: 01/05/19 13:40 Impression: 58 year old F presents via EMS complaining of nausea, vomiting and dizziness w/ left ear buzzing since this morning r/o Benign Positional Vertigo vs Electrolyte Abnormalities; Consider CVA but less likely Plan: -- Labs -- Reglan -- CT head w/o contrast -- EKG -- Reassess and disposition Prior Visits: Notes and results from previous visits were reviewed. Progress Notes: Patient felt a little drowsy after Reglan. No more dizziness with head movement or in general. No headache. Will reevaluate. 01/05/19 14:43 EKG shows NSR at 69 BPM with normal QRS, normal axis, normal intervals, no acute ST/T wave abnormalities. Interpreted by me. Reevaluated patient after antivert Reglan who says she feels better, no dizziness, nausea or pain. She tolerates PO fluids in Emergency room, no vomiting. She was albe to walk for me a couple of steps with assistance from daughter without symptoms. Neuro exam 5/5 MS, sensation intact. No change from initial exam. Will discharge home with 2 sons who are at bedside. Advised to follow up with PMD and report back to ER for any worsening complaints. - RAD Interpretation Narrative RAD Interpretations (Text): 01/05/19 15:12 CT HEAD WITHOUT CONTRAST No acute intracranial abnormality. If there is a persistent focal neurologic deficit and an ongoing clinical concern for acute infarction, an MRI of the brain without intravenous contrast would be a more sensitive modality for evaluation of hyperacute/acute ischemic infarction. Radiology Orders: 01/05/19 13:24 HEAD W/O CONTRAST [CT] Stat Liver Trimmer: Radiologist - Medication Orders Current Medication Orders: Metoclopramide HCl (Reglan) 10 mg IVP STAT STA Stop: 01/05/19 13:26 - Scribe Statement The provider has reviewed the documentation as recorded by the Candace Felder All medical record entries made by the Josepibe were at my direction and personally dictated by me. I have reviewed the chart and agree that the record accurately reflects my personal performance of the history, physical exam, medical decision making, and the department course for this patient. I have also personally directed, reviewed, and agree with the discharge instructions and disposition. Disposition/Present on Arrival - Present on Arrival Any Indicators Present on Arrival: No History of DVT/PE: No History of Uncontrolled Diabetes: No Urinary Catheter: No History of Decub. Ulcer: No History Surgical Site Infection Following: None - Disposition Have Diagnosis and Disposition been Completed?: Yes Diagnosis: Dizziness, Fall Disposition: HOME/ ROUTINE Disposition Time: 02:45 Condition: IMPROVED Discharge Instructions (ExitCare): Vertigo (a Type of Dizziness), Preventing Falls in the Older Adult Additional Instructions: SLOAN MULLER, thank you for letting us take care of you today. Your provider was Keven Grove DO and you were treated for Dizziness. The emergency medical care you received today was directed at your acute symptoms. If you were prescribed any medication, please fill it and take as directed. It may take several days for your symptoms to resolve. Return to the Emergency Department if your symptoms worsen, do not improve, or if you have any other problems. Please contact your doctor or call one of the physicians/clinics you have been referred to that are listed on the Patient Visit Information form that is included in your discharge packet. Bring any paperwork you were given at discharge with you along with any medications you are taking to your follow up visit. Our treatment cannot replace ongoing medical care by a primary care provider outside of the emergency department. Thank you for allowing the [facility] team to be part of your care today. If you had an X-Ray or CT scan: A Radiologist will review the ED reading if any change in treatment is needed we will contact you. If you had a blood, urine, or wound culture: It will take several days for the results, if any change in treatment is needed we will contact you. If you had an STI test: It will take 48 hours for the results. Please call after 1 week if you have not heard back. Prescriptions: Meclizine [Meclizine*] 25 mg PO Q6 PRN #30 tab PRN Reason: Dizziness Referrals: Manish Carrion MD [Staff Provider] - Follow up with primary William Garcia MD [Family Provider] - Follow up with primary Forms: [employer] (Lao)
[2019-01-05 13:48] LABS: BASO # 0.04 K/mm3 (0.0-2.0); BASO % 0.4 % (0.0-3.0); EOS # 0.1 (0.0-0.7); EOS % 0.9 % (1.5-5.0); LYMPH # 1.7 (1.2-3.4); MEAN CELL VOLUME 81.9 fl (80.0-105.0); MEAN CORPUSCULAR HEMOGLOBIN 27.2 pg (25.0-35.0); MEAN CORPUSCULAR HGB CONC 33.2 g/dl (31.0-37.0); MEAN PLATELET VOLUME 11.4 fl (7.0-11.0); MONO # 0.5 (0.1-0.6); MONO % 5.3 % (1.0-6.0); RBC 5.15 10^6/uL (3.5-6.1); RED CELL DISTRIBUTION WIDTH 13.1 % (11.5-14.5); WHITE BLOOD COUNT 9.7 10^3/uL (4.5-11.0)
[2019-01-05 14:01] LABS: ALB/GLOB RATIO 1.3 (1.1-1.8); ALBUMIN 4.2 g/dL (3.0-4.8); ALT/SGPT 23 U/L (7-56); AST/SGOT 22 U/L (14-36); BLOOD UREA NITROGEN 16 mg/dL (7-21); CALCIUM 9.3 mg/dL (8.4-10.5); GFR NON-AFRICAN AMERICAN > 60
--- NOTE | 2019-01-05 14:21 | CT ---
Date of service: 01/05/2019 PROCEDURE: CT HEAD WITHOUT CONTRAST. HISTORY: dizziness COMPARISON: MRI brain without contrast from 01/03/2018 TECHNIQUE: Axial computed tomography images were obtained through the head/brain without intravenous contrast. Radiation dose: Total exam DLP = 965.37 mGy-cm. This CT exam was performed using one or more of the following dose reduction techniques: Automated exposure control, adjustment of the mA and/or kV according to patient size, and/or use of iterative reconstruction technique. FINDINGS: HEMORRHAGE: No intracranial hemorrhage. BRAIN: Ramirez-white matter differentiation is preserved. There is no mass, mass effect or abnormal extra-axial fluid collection. There is no territorial infarction. The midline sagittal structures are normal. VENTRICLES: The ventricles are normal in size, shape and configuration. CALVARIUM: There is no calvarial fracture or extracranial soft tissue swelling. PARANASAL SINUSES: Predominantly clear. MASTOID AIR CELLS: Predominantly clear. OTHER FINDINGS: None. IMPRESSION: No acute intracranial abnormality. If there is a persistent focal neurologic deficit and an ongoing clinical concern for acute infarction, an MRI of the brain without intravenous contrast would be a more sensitive modality for evaluation of hyperacute/acute ischemic infarction.
[2019-01-05 14:56] VITALS: BP 147/73; PULSE 74; O2SAT 96
--- NOTE | 2019-01-05 19:31 | CARD ---
APPROVED REPORT Date of service: 01/05/2019 EKG Measurement Heart [id number] <Conclusion> Normal sinus rhythm Normal ECG
== END 2019-01-05 15:46 | disposition home or self-care (01) ==
LOC: ED 13:00
DX: R42 Dizziness and giddiness (principal); W06.XXXA Fall from bed, initial encounter; I10 Essential (primary) hypertension; E11.9 Type 2 diabetes mellitus without complications
CPT/HCPCS: 70450; 80053; 82948; 83735; 85025; 93005; 96374; 99285; J2765